=== PATIENT | male | born 1990 | race Two or more races ===

== ENCOUNTER 2020-01-14 08:20 | Emergency (ER) | payer SELFPAY ==
[~2020-01-14] VITALS: Ht 182.9 cm; Wt 81.6 kg
[2020-01-14 08:21] VITALS: BP 124/79
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
--- NOTE | 2020-01-14 08:49 | NUR ---
ED Nurse Note: Pt was taken for CT/ Xray via gurvenessa, accompanied by a tech.
--- NOTE | 2020-01-14 09:25 | NUR ---
ED Nurse Note: Pt returned fro CT/ Xray, not in any distress.
[2020-01-14 10:40] VITALS: BP 124/79
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
--- NOTE | 2020-01-14 13:57 | Diagnostic Imaging Report ---
Indications: Head trauma, 10 out of 10 head pain Technique: Spiral acquisitions obtained through the brain. Angled axial and coronal 5 x 5 mm slices were reconstructed. Total dose length product 1045 mGycm. CTDI vol(s) 50 mGy. Dose reduction achieved using automated exposure control Comparison: None. Findings: There are right frontal and right temporal region scalp contusions noted. No acute intracranial hemorrhage or edema. No mass effect nor midline shift. Normal dash-white differentiation. Normal size ventricles and extra-axial CSF spaces. Visualized orbits are unremarkable. There is bilateral ethmoid sinus mucosal disease. The mastoids are clear. There is evidence of prior left temporoparietal craniotomy/craniectomy. Impression: Negative for acute intracranial bleed or mass effect. Evidence of right sided extracranial scalp soft tissue trauma Evidence of prior left craniotomy/craniectomy This agrees with the preliminary interpretation provided by Dr. Jordan The CT scanner at [facility] is accredited by the [employer] and the scans are performed using protocols designed to limit radiation exposure to as low as reasonably achievable to attain images of sufficient resolution adequate for diagnostic evaluation.
--- NOTE | 2020-01-14 14:12 | Diagnostic Imaging Report ---
Indication: Pain, trauma Technique: 2 views of the left ribs Comparison: none Findings: There are fractures of the lateral left ninth and 10th ribs. No associated pneumothorax. Impression: Positive for ninth and 10th fractures This agrees with the preliminary interpretation reported by the emergency room physician in the electronic medical record
--- NOTE | 2020-01-14 14:14 | Diagnostic Imaging Report ---
Indication: Pain, trauma Technique: 3 views of the right great toe Comparison: none Findings: No acute fractures. No dislocations. The joint spaces are preserved. Impression: Negative
== END 2020-01-14 11:30 | disposition left against medical advice (07) ==
LOC: EDBD 08:20 → EMR 11:27
DX: S09.90XA Unspecified injury of head, initial encounter (principal); S22.32XA Fracture of one rib, left side, initial encounter for closed fracture; S90.31XA Contusion of right foot, initial encounter; F17.200 Nicotine dependence, unspecified, uncomplicated; F11.11 Opioid abuse, in remission; Y09 Assault by unspecified means; Y93.9 Activity, unspecified; Y92.9 Unspecified place or not applicable; Z53.29 Procedure and treatment not carried out because of patient's decision for other reasons
CPT/HCPCS: 70450; 99284